=== PATIENT | male | born 1955 | race Caucasian/White ===

== ENCOUNTER 2017-01-07 07:56 | Emergency (ER) | payer OTHER ==
[2017-01-07 08:07] VITALS: BP 149/86
[2017-01-07] MEDS ORDERED: Tamsulosin 0.4 MG Cap.ER PO ONE ×2 (09:33→13:38)
[2017-01-07] MEDS ORDERED: Ketorolac 30 MG/ML SDV IVPUSH ONE (09:33)
[2017-01-07] MEDS ORDERED: Sodium Chloride 0.9% 1,000 ML IV ONE (09:33)
[2017-01-07] MEDS ORDERED: Ketorolac 10 MG Tab PO ONE (10:00)
[2017-01-07 10:06] LABS: CHLORIDE,CL 104 mEq/L (98-106); SODIUM,NA 139 mEq/L (136-145)
--- NOTE | 2017-01-07 13:16 | EDM.PDOC ---
ED HPI GENERAL MEDICAL PROBLEM - General Chief Complaint: Back Pain or Injury Stated Complaint: painful urination/low back pain Time Seen by Provider: 01/07/17 09:10 Source of Information: Reports: Patient History Limitations: Reports: No Limitations - History of Present Illness INITIAL COMMENTS - FREE TEXT/NARRATIVE: History and physical: History of present illness: [Patient comes to the emergency room complaining of left lower back pain. Onset was about 9 PM last evening. this has continued into today. Pain starts in his left low back and radiates around into his left lower abdomen and left testicle. He has not had any fever or chills. Otherwise no abdominal pain. No nausea or vomiting. States that he has been producing smaller amount of urine usual. Has the sensation that he needs to urinate but when on toilet only produces a small amount. Denies a feeling of bladder fullness. He has not noticed any blood in his urine. He has burning with urination. Patient is most comfortable standing and complains of increased pain with sitting and laying. Patient felt well yesterday until the onset of symptoms last night. He took one tablet of at midnight which allowed patient to relax and sleep. Had C-spine decompression surgery on December 21, 2016 at a surgery center in [facility]. Surgery was without complications and patient has been recovering well. He has no other complaints or concerns at this time.] Review of Systems: As per history of present illness and below otherwise all systems reviewed and negative. Past medical history: As per history of present illness and as reviewed below otherwise noncontributory. Surgical history: As per history of present illness and is reviewed below other santos noncontributory. Social history: No reported history of drug or alcohol abuse. Family history: As per history of present illness and is reviewed below otherwise noncontributory. Physical exam: HEENT: Atraumatic, normocephalic. Oral mucous membranes are pink and moist. Scar present over cervical spine at the level of C4-C5. Neck is supple, no lymphadenopathy. No erythema swelling or drainage surrounding incision site. Lungs: Clear to auscultation, breath sounds equal bilaterally. Heart: S1-S2, regular rate and rhythm. Abdomen: Bowel sounds are normoactive throughout. Soft, nondistended. Mildly tender to percussion over left flank and left lower abdomen. Negative for masses , guarding or rebound. Pelvis: Stable, nontender. Genitourinary: Deferred. Rectal: Deferred. Extremities: atraumatic, without swelling or cyanosis to feet or lower legs. Ambulates without difficulty. Neurovascular unremarkable. Neuro: Awake, alert, oriented. Motor and sensory unremarkable throughout. Exam nonfocal. Diagnostics: [Urinalysis with micro, CT for kidney stone] Therapeutics: [Flomax 0.4 mg by mouth, Toradol 30 mg IV, IV normal saline] Impression: [Kidney stone, left] Plan: [Patient is notified that CT shows 2.6 mm distal left ureteral stone and mild left hydroureteronephrosis. Patient is kept as extended ER for IV pain medication and fluids. Patient improved on the emergency room, remained pain-free and as well. Will discharge to home with take home meds of Flomax and ketorolac. He is offered hydrocodone but declined stating that he has oxycodone left over from his neck surgery that he can take if he needs it. Rx written for Flomax 0.4 mg #7 sig: One by mouth daily zero refills. Continue this medication until taken. He is in agreement and verbalized understanding of today's plan. Definitive disposition and diagnosis is appropriate pending reevaluation and review of above. - Related Data Allergies Allergy/AdvReac Type Severity Reaction Status Date / Time No Known Allergies Allergy Verified 01/07/17 08:11 Home Meds: Home Meds Sildenafil Citrate [Viagra] 50 mg PO ASDIRECTED 01/07/17 [History] Simvastatin [Simvastatin] 10 mg PO DAILY 01/07/17 [History] Past Medical History Other Genitourinary History: pt states painful urination, frequency, cannot urinate but just a few drops - Past Surgical History Male Surgical History: Reports: None Social & Family History - Family History Family Medical History: Unobtainable HEENT: Reports: None Cardiac: Reports: Heart Failure, Hypertension Respiratory: Reports: None Musculoskeletal: Reports: None Neurological: Reports: None Psychiatric: Reports: None Endocrine/Metabolic: Reports: None Hematologic: Reports: None Immunologic: Reports: None Oncologic: Reports: None - Tobacco Use Smoking Status *Q: Never Smoker Second Hand Smoke Exposure: No - Caffeine Use Caffeine Use: Reports: Coffee - Alcohol Use Days Per Week of Alcohol Use: 7 Number of Drinks Per Day: 1 Total Drinks Per Week: 7 - Recreational Drug Use Recreational Drug Use: No ED ROS GENERAL - Review of Systems Review Of Systems: ROS reveals no pertinent complaints other than HPI. ED EXAM,LOWER BACK PAIN/INJURY - Physical Exam Exam: See Below Course - Vital Signs Text/Narrative:: Patient is pain-free and has urinated a large amount without any difficulty. He requests discharge to home. Last Recorded V/S: Last Vital Signs Temp 97.8 F 01/07/17 08:00 Pulse 73 01/07/17 08:00 Resp 18 01/07/17 08:00 BP 149/86 H 01/07/17 08:00 Pulse Ox 98 01/07/17 08:00 - Orders/Labs/Meds Orders: Active Orders 24 hr Category Date Time Status Abdomen Pelvis wo Cont [CT] Stat Exams 01/07/17 09:10 Taken Sodium Chloride 0.9% [Normal Saline] 1,000 ml Med 01/07/17 09:33 Active IV STAT Medication Orders Sodium Chloride (Normal Saline) 1,000 mls @ 75 mls/hr IV STAT ONE Stop: 01/07/17 22:52 Last Admin: 01/07/17 09:50 Dose: 75 mls/hr Labs: Laboratory Tests 01/07/17 01/07/17 01/07/17 Range/Units 08:50 09:10 09:10 WBC 10.9 H (5.0-10.0) 10^3/uL RBC 5.05 (4.50-6.00) 10^6/uL Hgb 14.6 (14.0-18.0) g/dL Hct 42.7 (40.0-54.0) % MCV 84.6 (82.0-94.0) fL MCH 28.9 (27.0-32.0) pg MCHC 34.2 (33.0-38.0) g/dL RDW Coeff of Dane 12.7 (11.0-15.0) % Plt Count 248 (150-400) 10^3/uL Neut % (Auto) 84.0 (35-85) % Lymph % (Auto) 6.7 L (10-55) % [place] % (Auto) 7.3 (0-16) % Eos % (Auto) 1.8 (0-5) % Baso % (Auto) 0.2 (0-3) % Neut # (Auto) 9.14 H (1.80-7.00) 10^3/uL Lymph # (Auto) 0.73 L (1.00-4.80) 10^3/uL [place] # (Auto) 0.79 (0.00-0.80) 10^3/uL Eos # (Auto) 0.20 (0.00-0.45) 10^3/uL Baso # (Auto) 0.02 10^3/uL Sodium 139 (136-145) mEq/L Potassium 4.3 (3.5-5.0) mEq/L Chloride 104 (98-106) mEq/L Carbon Dioxide 30 (21-32) mmol/L BUN 21 H (7-18) mg/dL Creatinine 1.1 (0.7-1.3) mg/dL Est Cr Clr Drug Dosing 65.25 mL/min Estimated GFR (MDRD) > 60 (>=60) mL/min Glucose 107 H (75-99) mg/dL Calcium 8.9 (8.4-10.1) mg/dL Total Bilirubin 0.4 (0.0-1.0) mg/dL AST 32 (15-37) U/L ALT 48 (12-78) U/L Alkaline Phosphatase 75 (46-116) U/L Total Protein 7.3 (6.4-8.2) g/dL Albumin 3.8 (3.4-5.0) g/dL Urine Color Yellow (YELLOW) Urine Appearance Clear (CLEAR) Urine pH 5.5 (4.5-8.0) Ur Specific [place] 1.024 H (1.003-1.020) Urine Protein 30 H (NEGATIVE) mg/dL Urine Glucose (UA) Negative (NEGATIVE) mg/dL Urine Ketones Negative (NEGATIVE) mg/dL Urine Occult Blood Large H (NEGATIVE) Urine Nitrite Negative (NEGATIVE) Urine Bilirubin Negative (NEGATIVE) Urine Urobilinogen 0.2 (0.2-1.0) EU/dL Ur Leukocyte Esterase Negative (NEGATIVE) Urine RBC 30-40 H (0-5) /HPF Urine WBC Not seen (0-5) /HPF Urine Mucus Few H (NOT SEEN) /HPF Meds: Medications Generic Name Dose Route Start Last Admin Trade Name Freq PRN Reason Stop Dose Admin Sodium Chloride 1,000 mls @ 75 mls/hr 01/07/17 09:33 01/07/17 09:50 Normal Saline IV 01/07/17 22:52 75 mls/hr STAT ONE Administration Discontinued Medications Generic Name Dose Route Start Last Admin Trade Name Camilo PRN Reason Stop Dose Admin Hydrocodone Bitart/Acetaminophen 2 packet 01/07/17 13:36 Take Home: Acetaminophen/Hydrocod, 2 Tab Pack PO 01/07/17 13:37 ONETIME ONE Ketorolac Tromethamine 30 mg 01/07/17 09:33 01/07/17 09:48 Toradol IVPUSH 01/07/17 09:34 30 mg ONETIME ONE Administration Ketorolac Tromethamine 2 packet 01/07/17 13:36 Take Home: Ketorolac 10 Mg, 4 Tab Pack PO 01/07/17 13:37 ONETIME ONE Tamsulosin HCl 0.4 mg 01/07/17 09:33 01/07/17 09:48 Flomax PO 01/07/17 09:34 0.4 mg ONETIME ONE Administration Tamsulosin HCl 0.4 mg 01/07/17 13:38 Flomax PO 01/07/17 13:39 ONETIME ONE Departure - Departure Time of Disposition: 13:37 Disposition: Home, Self-Care 01 Condition: Good Clinical Impression: Kidney stone on left side - Discharge Information Referrals: Eris Zaragoza MD [Primary Care Provider] - Forms: ED Department Discharge Additional Instructions: The following information is given to patients seen in the emergency department who are being discharged home. This information is to outline your options for follow-up care and provides all patient seen in our emergency department with a follow-up referral. The need for follow-up, as well as the timing and circumstances, are variable depending upon the specifics of each emergency department visit. If you don't have a primary care physician on staff, we will provide you with a referral. We always advise to contact your personal physician following an emergency department visit to inform them of the circumstances of the visit and for follow-up with them and/or the need for any referrals to a consulting specialist. The emergency department will also refer you to a specialist when appropriate. This referral assures that you have the opportunity for follow-up care with a specialist. All of these measures are taken in an effort to provide you with optimal care, which includes your follow-up. Under all circumstances we always encourage you to contact your private physician who remains a resource for coordinating your care. When calling for follow-up care, please make the office aware that this follow-up is from your recent emergency room visit. If for any reason you are refused follow-up please contact the [facility] emergency department at and ask to speak to the emergency department nurse. [facility] [address] [address] Followup with primary care provider in 48-72 hours. Return to ER as needed as discussed. Push fluids, strain urine, get plenty of rest. - My Orders Last 24 Hours: My Active Orders 01/07/17 09:10 Abdomen Pelvis wo Cont [CT] Stat 01/07/17 09:33 Sodium Chloride 0.9% [Normal Saline] 1,000 ml IV STAT - Assessment/Plan Last 24 Hours: My Active Orders 01/07/17 09:10 Abdomen Pelvis wo Cont [CT] Stat 01/07/17 09:33 Sodium Chloride 0.9% [Normal Saline] 1,000 ml IV STAT
[2017-01-07] MEDS ORDERED: Take Home: Acetaminophen/HYDROcodone 325-5 MG, 2 Tab Pack PO ONE (13:36)
[2017-01-07] MEDS ORDERED: Take Home: Ketorolac 10 MG Tab, 4 Tab Pack PO ONE (13:36)
== END 2017-01-07 14:05 | disposition home or self-care (01) ==
LOC: CC.ED 07:56
DX: N13.2 Hydronephrosis with renal and ureteral calculous obstruction (principal); I11.0 Hypertensive heart disease with heart failure; Z79.899 Other long term (current) drug therapy; I50.9 Heart failure, unspecified
CPT/HCPCS: 36415; 74176; 80053; 81001; 85025; 96361; 96374; 99283; A9270; J1885; J7030

== ENCOUNTER 2024-04-19 09:55 | Day surgery (SDC) | payer MEDICARE ==
[2024-04-19] MEDS: Lactated Ringers 1,000 ML IV SCH (10:19)
[2024-04-19] MEDS ORDERED: Propofol 200 MG/20 ML SDV ONE (10:24)
[2024-04-19] MEDS ORDERED: Ketamine 200 MG/20 ML MDV ONE (10:24)
[2024-04-19] MEDS ORDERED: Midazolam 1 MG/ML 2 ML SDV ONE (10:24)
[2024-04-19] MEDS ORDERED: fentaNYL 50 MCG/ML SDV ONE (10:24)
[2024-04-19 11:51] VITALS: BP 122/66; PULSE 75
== END 2024-04-19 11:52 | disposition home or self-care (01) ==
LOC: CC.SDS 09:55
PROVIDERS: ATTEND Family Medicine
DX: Z12.11 Encounter for screening for malignant neoplasm of colon (principal); R19.5 Other fecal abnormalities; K64.9 Unspecified hemorrhoids; E78.5 Hyperlipidemia, unspecified; N40.0 Benign prostatic hyperplasia without lower urinary tract symptoms; Z79.82 Long term (current) use of aspirin; Z79.899 Other long term (current) drug therapy
CPT/HCPCS: 00811; J2250; J2704; J3010; J3490; J7120